=== PATIENT | male | born 1970 | race Caucasian/White ===

== ENCOUNTER 2021-10-05 19:46 | Emergency (ER) | payer BC, OTHER, SELFPAY ==
[2021-10-05] MEDS ORDERED: Ketorolac Tromethamine 30 MG/ML VIAL ONE (21:31)
== END 2021-10-06 00:03 | disposition home or self-care (01) ==
LOC: CSHERS 19:46
DX: R07.81 Pleurodynia (principal); I10 Essential (primary) hypertension
CPT/HCPCS: 71045; 96372; J1885